=== PATIENT | male | born 1975 | race Caucasian/White ===

== ENCOUNTER 2020-10-22 17:14 | Emergency (ER) | payer SELFPAY ==
[~2020-10-22] VITALS: Ht 177.8 cm; Wt 96.3 kg
[2020-10-22 17:18] VITALS: BP 170/106
--- NOTE | 2020-10-22 18:25 | NUR ---
PER REGISTRATION, PT LEFT ED LOBBY. CONFIRMED PT NOT IN LOBBY AT THIS TIME.
== END 2020-10-22 20:53 | disposition left against medical advice (07) ==
LOC: ED 20:43
DX: R10.9 Unspecified abdominal pain (principal); Z53.21 Procedure and treatment not carried out due to patient leaving prior to being seen by health care provider
CPT/HCPCS: 99281